=== PATIENT | male | born 1985 | race Caucasian/White ===

== ENCOUNTER 2023-12-12 20:48 | Emergency (ER) | payer OTHER, SELFPAY ==
[2023-12-12 20:51] VITALS: BP 159/97; PULSE 86; RESP 16; TEMP 36.8; O2SAT 99; BMI 31.6
[2023-12-12] MEDS: TET,DIPH,PERTUSS(ACELL),VAC/PF 0.5 ML SYRINGE IM (21:16)
--- NOTE | 2023-12-12 23:20 | ED.WOUNDLAC ---
HPI - Wound/Laceration General Chief Complaint: Wound/Laceration Stated Complaint: lac on pointer finger, needs stitches Time Seen by Provider: 12/12/23 23:20 Source: patient Mode of arrival: Ambulatory History of Present Illness HPI narrative: Patient is a healthy 38-year-old male who presents today with left index finger laceration. Reports that he was cutting skin off a potato when he cut his finger. He has a decent flat. No numbness tingling or weakness. Got his tetanus updated here. Related Data Allergies Allergy/AdvReac Type Severity Reaction Status Date / Time No Known Drug Allergies Allergy Verified 12/12/23 20:51 Patient History Surgical History (Updated 06/29/17 @ 06:08 by Conversion Provider) History of third molar tooth extraction Status post hernia repair Family History (Updated 05/13/16 @ 00:00 by Conversion Provider) Sister Age: 33 Crohn's disease Social History Smoking Status: Never smoker Smoking Status: Never smoker alcohol intake frequency: a few times a week Substance Use Type: does not use Exam Initial Vital Signs Initial Vital Signs: Vital Signs Temperature 98.3 F 12/12/23 20:51 Pulse Rate 86 12/12/23 20:51 Respiratory Rate 16 12/12/23 20:51 Blood Pressure 159/97 H 12/12/23 20:51 Pulse Oximetry 99 12/12/23 20:51 Oxygen Delivery Method Room Air 12/12/23 20:51 GENERAL: Well-appearing, well-nourished and in no acute distress. CARDIOVASCULAR: peripheral pulses in tact, cap refill <2 sec RESPIRATORY: No respiratory distress, speaks in full sentences without difficulty EXTREMITIES: Normal range of motion, no clubbing or edema. Neurovascularly intact NEUROLOGICAL: Cranial nerves II through XII grossly intact. Normal gait and speech. SKIN: Left index finger 4 cm laceration neurovascularly intact able to flex and extend completely there is no tendon involvement bleeding controlled Procedures Laceration Repair Laceration 1: Site: upper extremity (index finger) Side (If applicable): left Size (cm): 4 Description: flap Depth: simple, single layer Local Anesthetic: lidocaine 1% Amount of anesthesia used (mL): 4 Pre-repair: wound explored, irrigated extensively and deep structures intact Skin layer closed with: nylon Skin layer suture size: 4-0 Number of sutures: 4 Course Orders Ordered: Discontinued Medications Diphtheria/Tetanus/Acell Pertussis (Tet,Diph,Pertuss(Acell),Vac/Pf 0.5 Ml Syringe) 0.5 ml IM .ONCE ONE Stop: 12/12/23 21:02 Last Admin: 12/12/23 21:16 Dose: 0.5 ml Documented By: OFE Vital Signs Vital signs: Vital Signs - 8 hr 12/12/23 20:51 12/12/23 23:50 Temperature 98.3 F Pulse Rate 86 74 Respiratory Rate 16 18 Blood Pressure 159/97 H 150/97 H Pulse Oximetry 99 100 Oxygen Delivery Method Room Air Room Air MDM - Wound/Laceration MDM Narrative Medical decision making narrative: 38-year-old male presents today with left index finger laceration. It is irrigated in easily repaired. Given tetanus shot today. No need for imaging or antibiotics Discharge Plan Departure Patient Disposition: Home Clinical Impression: Laceration of left index finger Instructions: DI for Laceration Repair Activity Restrictions/Additional Instructions: *You have been diagnosed with left finger laceration *What to do: Keep sutures in for up to 5-7 days. Keep hand clean and dry with soap and water. May apply antibiotic ointment 1-2 times daily *Continue to take medications as directed Tylenol Motrin as needed for pain *Follow up with your primary care provider in 2-3 days or call [phone] *Return to ER if you should have increased swelling redness pain or any new, worsening or concerning symptoms Stand Alone Forms: Patient Portal/API
[2023-12-12 23:50] VITALS: BP 150/97; PULSE 74; RESP 18; O2SAT 100
== END 2023-12-12 23:48 | disposition home or self-care (01) ==
PROVIDERS: Emergency Provider Emergency Medicine
DX: S61.217A Laceration without foreign body of left little finger without damage to nail, initial encounter (principal); W26.9XXA Contact with unspecified sharp object(s), initial encounter; Z23 Encounter for immunization
CPT/HCPCS: 12002; 90471; 99283; 90715